=== PATIENT | female | born 1960 | race Two or more races ===

== ENCOUNTER 2020-08-16 09:00 | Inpatient (IN) | payer OTHER ==
[~2020-08-16] VITALS: Ht 149.9 cm; Wt 68.0 kg
[2020-08-16] MEDS ORDERED: OMEPRAZOLE MAGN20 MG PO (11:30)
[2020-08-16] MEDS ORDERED: LEXAPRO5 MG PO (11:31)
[2020-08-16] MEDS ORDERED: BUSPAR PO (11:31)
[2020-08-16] MEDS ORDERED: NORVASC5 MG PO (13:38)
[2020-08-16] MEDS ORDERED: HYDROCHLOROTHIA25 MG PO (13:38)
[2020-09-01] MEDS ORDERED: OMEPRAZOLE40 MG (10:04)
[2020-09-01] MEDS ORDERED: TRIAMTERENE-HC1 EAC3 (10:05)
[2020-09-01] MEDS ORDERED: BUSPIRONE HCL10 MG (10:05)
[2020-09-01] MEDS ORDERED: ESCITALOPRAM OX20 MG (10:05)
[2020-09-01] MEDS ORDERED: LORAZEPAM0.5 MG (10:05)
[2020-09-02] MEDS ORDERED: GAS RELIEF 8080 MG PO (16:14)
[2020-09-02] MEDS ORDERED: PEPCID AC20 MG PO (16:14)
[2020-09-02] MEDS ORDERED: TYLENOL ARTHRI650 MG PO (16:14)
[2020-09-02] MEDS ORDERED: CARAFATE1 GM PO (16:15)
[2020-09-02] MEDS ORDERED: POLY119PG PO (16:15)
== END 2020-09-02 16:39 | disposition home or self-care (01) | DRG 328 ==
LOC: PED 09-01 05:56 → O/R 09-01 05:56 → SURH 09-01 08:30 → PED 09-01 17:09
PROVIDERS: ADMIT Surgery; ATTEND Surgery
PROC: 0DS64ZZ Reposition Stomach, Percutaneous Endoscopic Approach (ICD-10-PCS; 2020-09-01)
PROC: 0DV44ZZ Restriction of Esophagogastric Junction, Percutaneous Endoscopic Approach (ICD-10-PCS; 2020-09-01)
PROC: 0WQF4ZZ Repair Abdominal Wall, Percutaneous Endoscopic Approach (ICD-10-PCS; 2020-09-01)
PROC: 0DJ08ZZ Inspection of Upper Intestinal Tract, Via Natural or Artificial Opening Endoscopic (ICD-10-PCS; 2020-09-01)
PROC: 0DV44ZZ Restriction of Esophagogastric Junction, Percutaneous Endoscopic Approach (ICD-10-PCS; 2020-09-01)
PROC: 0BUT4JZ Supplement Diaphragm with Synthetic Substitute, Percutaneous Endoscopic Approach (ICD-10-PCS; principal; 2020-09-01 08:30)
DX: K42.9 Umbilical hernia without obstruction or gangrene (principal); K21.00 Gastro-esophageal reflux disease with esophagitis, without bleeding; K44.9 Diaphragmatic hernia without obstruction or gangrene; K76.0 Fatty (change of) liver, not elsewhere classified; Z20.828 Contact with and (suspected) exposure to other viral communicable diseases; K43.2 Incisional hernia without obstruction or gangrene

== ENCOUNTER 2020-08-25 09:40 | Outpatient (CLI) | payer OTHER ==
[~2020-08-25 09:40] MED LIST: BUSPAR PO; HYDROCHLOROTHIA25 MG PO; LEXAPRO5 MG PO; NORVASC5 MG PO; OMEPRAZOLE MAGN20 MG PO
== END 2020-08-25 09:55 | disposition home or self-care (01) ==
LOC: RX STUDY 09:40
PROVIDERS: ATTEND Surgery
DX: K44.9 Diaphragmatic hernia without obstruction or gangrene (principal)